=== PATIENT | female | born 1980 | race Two or more races ===

== ENCOUNTER 2022-07-16 13:18 | Emergency (ER) | payer OTHER ==
[~2022-07-16] VITALS: Ht 154.9 cm; Wt 70.3 kg
[2022-07-16] MEDS ORDERED: TOPROL XL50 M1 PO (13:26)
== END 2022-07-16 19:33 | disposition home or self-care (01) ==
LOC: ER 13:18
DX: R10.11 Right upper quadrant pain (principal); Z20.822 Contact with and (suspected) exposure to COVID-19